=== PATIENT | male | born 1960 | race Caucasian/White ===

== ENCOUNTER → 2018-09-19 | Outpatient (REF) ==
--- NOTE | 2018-09-20 01:52 | REP ---
Clinical: Pain and disability. Technique: AP, lateral, coned-down views of the lumbosacral spine. Findings: Alignment and lordosis maintained. Mild multilevel degenerative changes include subtle endplate sclerosis with minimal disc space narrowing and hypertrophic facet changes. Findings are most pronounced at L5-S1, L4-5. Impression: Mild multilevel degenerative spondylosis primarily involving the lower lumbar spine. Electronically Signed by Henry Barnett MD 09/20/2018 01:43 A
== END ==
LOC: M SMT 11:47
PROVIDERS: ATTEND Internal Medicine
DX: M51.36 Other intervertebral disc degeneration, lumbar region (principal)